=== PATIENT | male | born 1990 | race Asian ===

== ENCOUNTER 2019-10-15 15:28 | Emergency (ER) | payer SELFPAY ==
[2019-10-15 17:48] LABS: ABS Basophils 0.1 10^3/ul (0-0.2); ABS Eosinophils 0.1 10^3/ul (0-0.6); ABS Lymphocytes 1.5 10^3/ul (1.0-4.8); ABS Monocytes 0.6 10^3/ul (0-0.8); Eosinophil % 0.5 %; Hematocrit 49 % (42-52); Hemoglobin 16.3 g/dL (14.0-18.0); Lymphocyte % 14.6 %; Mean Corpuscular HGB Conc 33 g/dL (31-36); Mean Corpuscular Hemoglobin 29 pg (27-31); Mean Corpuscular Volume 87 fL (80-94); Platelet Count 244 10^3/uL (150-450); Red Blood Count 5.66 10^6 /uL (4.18-5.48); Red Cell Distribution Width 13 % (10-15); White Blood Count 10.2 10^3/uL (3.5-10.8)
[2019-10-15 18:04] LABS: Albumin 4.7 g/dL (3.2-5.2); Albumin/Globulin Ratio 1.5 (1-3); Calcium 9.7 mg/dL (8.6-10.3); EGFR African American 139.3 (>60); EGFR Non-African American 115.1 (>60); Globulin 3.1 g/dL (2-4); Potassium 4.1 mmol/L (3.5-5.0); Total Bilirubin 0.4 mg/dL (0.2-1.0); Total Protein 7.8 g/dL (6.4-8.9)
--- NOTE | 2019-10-15 18:06 | ED ---
Throat Pain/Nasal Congestion - HPI Summary HPI Summary: 29-year-old male presents to the emergency department today with a chief complaint of sore throat, swollen lymph nodes 6 days. Patient states yesterday he also had a fever for which he took acetaminophen. Patient denies difficulties with swallowing or breathing. Patient is otherwise well and denies cough, nasal congestion, vomiting, diarrhea, nausea, pain with urination , shortness of breath, chest pain, abdominal pain, headache. Surgical history, history is noncontributory. Patient states he has not taken any recent recreational drugs or alcohol. - History of Current Complaint Chief Complaint: EDGeneral Time Seen by Provider: 10/15/19 17:52 Hx Obtained From: Patient Onset/Duration: Gradual Onset Severity: Moderate Associated Signs And Symptoms: Negative: Dysphagia, FB Sensation, Drooling Cough: None - Allergies/Home Medications Allergies/Adverse Reactions: Allergies Allergy/AdvReac Type Severity Reaction Status Date / Time No Known Allergies Allergy Verified 10/15/19 15:36 Home Medications: Home Medications Cephalexin CAP* [Keflex CAP*] 500 mg PO BID #20 cap 10/15/19 [Rx] PMH/Surg Hx/FS Hx/Imm Hx Infectious Disease History: No Infectious Disease History: Denies: Traveled Outside the [place] in Last 30 Days - Social History Alcohol Use: None Substance Use Type: Reports: None Smoking Status (MU): Never Smoked Tobacco Review of Systems Positive: Fever Eyes: Negative Positive: Sore Throat. Negative: Epistaxis, Dental Pain, Ear Ache Cardiovascular: Negative Respiratory: Negative Gastrointestinal: Negative Genitourinary: Negative Musculoskeletal: Negative Skin: Negative Neurological/Mental Status: Negative Psychological: Normal All Other Systems Reviewed And Are Negative: Yes Physical Exam - Summary Physical Exam Summary: Patient is no acute distress. There is anterior cervical lymphadenopathy. No cough noted. Inspection of the pharynx reveals erythema however uvula is midline and there is no evidence of peritonsillar abscess. No evidence of trismus. No stridor patient has no difficult with phonation or drooling. No tonsillar exudates are noted. Triage Information Reviewed: Yes Vital Signs On Initial Exam: Initial Vitals Temp Pulse Resp BP Pulse Ox 99.2 F 82 18 167/118 99 10/15/19 15:30 10/15/19 15:30 10/15/19 15:30 10/15/19 15:30 10/15/19 15:30 Vital Signs Reviewed: Yes Appearance: Positive: Well-Appearing, No Pain Distress, Well-Nourished Skin: Positive: Warm, Skin Color Reflects Adequate Perfusion Eyes: Positive: EOMI, GUILLERMO ENT: Positive: Hearing grossly normal. Negative: Pharynx normal Respiratory/Lung Sounds: Positive: Clear to Auscultation, Breath Sounds Present Cardiovascular: Positive: RRR, S1, S2 Bowel Sounds: Positive: Present Musculoskeletal: Positive: Strength/ROM Intact Neurological: Positive: Sensory/Motor Intact, Alert, Oriented to Person Place, Time, Normal Gait, Facial Symmetry, Speech Normal Psychiatric: Positive: Normal, Affect/Mood Appropriate AVPU Assessment: Alert Procedures - Sedation Patient Received Moderate/Deep Sedation with Procedure: No Diagnostics - Vital Signs Vital Signs Temp Pulse Resp BP Pulse Ox 10/15/19 15:30 99.2 F 82 18 167/118 99 - Laboratory Lab Results: Lab Results 10/15/19 Range/Units 17:28 WBC 10.2 (3.5-10.8) 10^3/uL RBC 5.66 H (4.18-5.48) 10^6 /uL Hgb 16.3 (14.0-18.0) g/dL Hct 49 (42-52) % MCV 87 (80-94) fL MCH 29 (27-31) pg MCHC 33 (31-36) g/dL RDW 13 (10-15) % Plt Count 244 (150-450) 10^3/uL MPV 9.0 (7.4-10.4) fL Neut % (Auto) 78.8 % Lymph % (Auto) 14.6 % [place] % (Auto) 5.6 % Eos % (Auto) 0.5 % Baso % (Auto) 0.5 % Absolute Neuts (auto) 8.0 H (1.5-7.7) 10^3/ul Absolute Lymphs (auto) 1.5 (1.0-4.8) 10^3/ul Absolute Monos (auto) 0.6 (0-0.8) 10^3/ul Absolute Eos (auto) 0.1 (0-0.6) 10^3/ul Absolute Basos (auto) 0.1 (0-0.2) 10^3/ul Absolute Nucleated RBC 0.0 10^3/ul Nucleated RBC % 0.0 Result Diagrams: 10/15/19 17:28 10/15/19 17:28 Lab Statement: Any lab studies that have been ordered have been reviewed, and results considered in the medical decision making process. EENT Course/Dx - Course Course Of Treatment: Patient was evaluated in the emergency department today for sore throat. Vitals noted and stable. Patient given ibuprofen for pain. Laboratory studies returned showing no significant abnormalities with no leukocytosis, anemia, electrolyte disturbance. Pharyngeal culture returned showing positive group A beta-hemolytic strep patient diagnosed with streptococcal pharyngitis and was treated with Keflex. Patient given prescription for Keflex and discharged with outpatient follow-up. There is no evidence of peritonsillar abscess or retropharyngeal abscess. - Differential Diagnoses Differential Diagnoses: Periodontic Abscess, Periodontic Disease, Peritonsillar Ulcer, Pharyngitis, Tonsilitis - Diagnoses Provider Diagnoses: Streptococcal pharyngitis Discharge ED - Sign-Out/Discharge Documenting (check all that apply): Patient Departure - Discharge Plan Condition: Stable Disposition: HOME Prescriptions: Cephalexin CAP* [Keflex CAP*] 500 mg PO BID #20 cap Patient Education Materials: Strep Throat (ED) Referrals: [facility] [Outside] - 3 Days No Primary Care Phys,NOPCP [Primary Care Provider] - Additional Instructions: How can I manage my symptoms? Use lozenges, ice, soft foods, or popsicles to soothe your throat. Drink juice, milk shakes, or soup if your throat is too sore to eat solid food. Drinking liquids can also help prevent dehydration. Gargle with salt water. Mix teaspoon salt in a 1 cup of warm water and gargle. This may help reduce swelling in your throat. Do not smoke. Nicotine and other chemicals in cigarettes and cigars can cause lung damage and make your symptoms worse. Ask your healthcare provider for information if you currently smoke and need help to quit. E-cigarettes or smokeless tobacco still contain nicotine. Talk to your healthcare provider before you use these products. How do I prevent the spread of strep throat? Wash your hands often. Use soap and water. Wash your hands after you use the bathroom, change a child's diapers, or sneeze. Wash your hands before you prepare or eat food. Do not share food or drinks. Replace your toothbrush after you have taken antibiotics for 24 hours. Take Keflex 500 mg twice daily for 10 days. [facility] days for further evaluation and management. Please return to this emergency Department immediately if you develop any new or worsening symptoms. Take Tylenol as needed for fever. - Billing Disposition and Condition Condition: STABLE Disposition: Home
[2019-10-15 19:09] LABS: HIV 4th Generation Nonreactive (Nonreactive)
[2019-10-15 19:14] LABS: Rapid Strep Molecular Positive (Negative)
[2019-10-15] MEDS ORDERED: Cephalexin CAP* 500 MG PO ONE (19:26)
[2019-10-15] MEDS ORDERED: Ibuprofen TAB* 600 MG PO ONE (19:35)
[2019-10-15 19:56] VITALS: BP 135/95
== END 2019-10-15 19:55 | disposition home or self-care (01) ==
LOC: ED 15:28
DX: J02.0 Streptococcal pharyngitis (principal); R59.0 Localized enlarged lymph nodes
CPT/HCPCS: 36415; 80053; 85025; 86308; 87389; 87651; 99282; A9270-GY